=== PATIENT | male | born 1960 | race Caucasian/White ===

== ENCOUNTER 2016-07-16 16:32 | Emergency (ER) | payer MEDICARE, MEDICAID ==
[2016-07-16] MEDS ORDERED: DUONEB INH ONE ×2 (17:07→19:41)
[2016-07-16] MEDS ORDERED: KETOROLAC 60 MG/2 ML VIAL IM ONE (17:32)
[2016-07-16] MEDS ORDERED: ORPHENADRINE 60 MG/2 ML AMP ONE (18:57)
== END 2016-07-16 21:07 | disposition home or self-care (01) ==
LOC: ER 16:32
CPT/HCPCS: 36415; 36600; 71010; 80051; 80053; 82330; 82553; 82803; 83880; 84484; 85025; 87804; 93005; 94640

== ENCOUNTER 2016-07-18 22:37 | Inpatient (IN) | payer OTHER, MEDICAID ==
[~2016-07-18] VITALS: Ht 167.6 cm; Wt 65.4 kg
[2016-07-18] MEDS ORDERED: METHYLPRED SOD SUCC 125 MG/2 ML VIAL ONE (22:40)
[2016-07-18] MEDS ORDERED: LORAZEPAM 2 MG/ML VIAL ONE (22:40)
[2016-07-18 22:49] VITALS: RESP 26
[2016-07-19] VITALS (8 sets, daily range): BP systolic 120–144; RESP 18–28; TEMP 97.5–98.1; BMI 22.1
[2016-07-19] MEDS ORDERED: SALINE FLUSH 10 ML FLUSH PRN (01:35)
[2016-07-19] MEDS ORDERED: ONDANSETRON 4 MG VIAL IV PRN (01:35)
[2016-07-19] MEDS ORDERED: SODIUM CHLORIDE 0.9% 1,000 ML IV SCH ×2 (01:35→03:05)
[2016-07-19] MEDS: NEB-XOPENEX 1.25 MG/3 ML INH SCH ×6 (03:32→23:00)
[2016-07-19] MEDS: NEB-ATROVENT INH SCH ×6 (03:32→23:00)
[2016-07-19] MEDS ORDERED: KETAMINE HCL 500 MG/10 ML VIAL ONE (04:38)
[2016-07-19] MEDS ORDERED: ROCURONIUM 50 MG VIAL IV ONE (04:38)
[2016-07-19] MEDS: SODIUM CHLORIDE 0.9% FLUSH BAG 500 ML IV SCH (06:00)
[2016-07-19] MEDS: SALINE FLUSH 10 ML FLUSH SCH ×2 (07:44→20:47)
[2016-07-19] MEDS: METHYLPRED SOD SUCC 40 MG VIAL IV SCH ×3 (07:44→23:29)
[2016-07-19] MEDS: ENOXAPARIN 40 MG/0.4 ML SYR SUBQ SCH ×2 (07:45→07:49)
[2016-07-19] MEDS: amLODIPine 5 MG TAB PO SCH ×2 (14:40→20:48)
[2016-07-19] MEDS: METOPROLOL TART 25 MG TAB PO SCH ×2 (14:40→20:48)
[2016-07-19] MEDS: NEB-ALBUTEROL 2.5 MG/3 ML INH SCH ×3 (15:00→23:00)
[2016-07-19] MEDS: DILTIAZEM CD 120 MG CAP PO SCH (15:34)
[2016-07-19] MEDS: ESCITALOPRAM 10 MG TAB PO SCH (15:34)
[2016-07-19] MEDS: ASPIRIN 81 MG CHEW TAB PO SCH (15:34)
[2016-07-19] MEDS: LISINOPRIL 10 MG TAB PO SCH (15:34)
[2016-07-19] MEDS: Hydrocodone/APAP 10/325 MG TAB PO PRN ×3 (15:36→23:35)
[2016-07-19] MEDS: NICOTINE 14 MG/24 HR TDSY TRANSDERM SCH (16:55)
[2016-07-19] MEDS: KCL CR 20 MEQ TAB PO SCH (20:48)
[2016-07-19] MEDS: TRAZODONE 50 MG TAB PO SCH (23:28)
[2016-07-20] VITALS (8 sets, daily range): BP systolic 98–146; RESP 16–24; TEMP 95.7–97.1
[2016-07-20] MEDS: NEB-XOPENEX 1.25 MG/3 ML INH SCH ×6 (02:51→22:39)
[2016-07-20] MEDS: NEB-ATROVENT INH SCH ×6 (02:52→22:40)
[2016-07-20] MEDS: Hydrocodone/APAP 10/325 MG TAB PO PRN ×5 (03:35→21:09)
[2016-07-20] MEDS: PANTOPRAZOLE 40 MG TAB PO SCH (06:18)
[2016-07-20] MEDS: SODIUM CHLORIDE 0.9% FLUSH BAG 500 ML IV SCH (06:22)
[2016-07-20] MEDS: NEB-ALBUTEROL 2.5 MG/3 ML INH SCH ×4 (07:00→22:40)
[2016-07-20] MEDS: NICOTINE 14 MG/24 HR TDSY TRANSDERM SCH (08:13)
[2016-07-20] MEDS: METHYLPRED SOD SUCC 40 MG VIAL IV SCH ×2 (08:14→16:44)
[2016-07-20] MEDS: ESCITALOPRAM 10 MG TAB PO SCH (08:15)
[2016-07-20] MEDS: LISINOPRIL 10 MG TAB PO SCH (08:15)
[2016-07-20] MEDS: KCL CR 20 MEQ TAB PO SCH ×2 (08:15→21:53)
[2016-07-20] MEDS: DILTIAZEM CD 120 MG CAP PO SCH (08:17)
[2016-07-20] MEDS: ASPIRIN 81 MG CHEW TAB PO SCH (08:17)
[2016-07-20] MEDS: METOPROLOL TART 25 MG TAB PO SCH ×2 (08:19→21:53)
[2016-07-20] MEDS: amLODIPine 5 MG TAB PO SCH ×2 (08:20→21:57)
[2016-07-20] MEDS: ENOXAPARIN 40 MG/0.4 ML SYR SUBQ SCH ×2 (08:21→08:28)
[2016-07-20] MEDS: SALINE FLUSH 10 ML FLUSH SCH ×2 (08:22→21:52)
[2016-07-20] MEDS ORDERED: MISSING DOSE XX ONE (08:30)
[2016-07-20] MEDS: THEOPHYLLINE SR 300 MG CAP PO SCH (09:48)
[2016-07-20] MEDS ORDERED: LORAZEPAM 0.5 MG TAB ONE (14:00)
[2016-07-20] MEDS: TRAZODONE 50 MG TAB PO SCH (21:53)
[2016-07-21] VITALS (19 sets, daily range): BP systolic 88–169; RESP 13–24; TEMP 95.5–97
[2016-07-21] MEDS: METHYLPRED SOD SUCC 40 MG VIAL IV SCH ×4 (00:28→23:33)
[2016-07-21] MEDS: LORAZEPAM 0.5 MG TAB PO PRN ×3 (01:07→22:07)
[2016-07-21] MEDS: Hydrocodone/APAP 10/325 MG TAB PO PRN ×5 (01:09→20:16)
[2016-07-21] MEDS: NEB-ATROVENT INH SCH ×4 (02:47→11:33)
[2016-07-21] MEDS: NEB-XOPENEX 1.25 MG/3 ML INH SCH ×3 (02:48→11:33)
[2016-07-21] MEDS: SODIUM CHLORIDE 0.9% FLUSH BAG 500 ML IV SCH ×2 (05:14→16:33)
[2016-07-21] MEDS: PANTOPRAZOLE 40 MG TAB PO SCH (06:29)
[2016-07-21] MEDS: NEB-ALBUTEROL 2.5 MG/3 ML INH SCH ×2 (07:00→13:47)
[2016-07-21] MEDS: ENOXAPARIN 40 MG/0.4 ML SYR SUBQ SCH ×2 (09:00→09:31)
[2016-07-21] MEDS: KCL CR 20 MEQ TAB PO SCH ×2 (09:00→20:16)
[2016-07-21] MEDS: LISINOPRIL 10 MG TAB PO SCH (09:28)
[2016-07-21] MEDS: DILTIAZEM CD 120 MG CAP PO SCH (09:28)
[2016-07-21] MEDS: METOPROLOL TART 25 MG TAB PO SCH ×2 (09:28→20:16)
[2016-07-21] MEDS: ESCITALOPRAM 10 MG TAB PO SCH (09:28)
[2016-07-21] MEDS: SALINE FLUSH 10 ML FLUSH SCH ×2 (09:28→20:16)
[2016-07-21] MEDS: ASPIRIN 81 MG CHEW TAB PO SCH (09:28)
[2016-07-21] MEDS: NICOTINE 14 MG/24 HR TDSY TRANSDERM SCH (09:29)
[2016-07-21] MEDS ORDERED: MISSING DOSE XX ONE (09:45)
[2016-07-21] MEDS: THEOPHYLLINE SR 300 MG CAP PO SCH (11:05)
[2016-07-21] MEDS: amLODIPine 5 MG TAB PO SCH ×2 (11:05→20:16)
[2016-07-21] MEDS: NEB-BUDESONIDE 0.5 MG INH SCH ×2 (12:20→20:18)
[2016-07-21] MEDS: NEB-BROVANA 15 MCG/2 ML INH SCH ×2 (12:20→20:18)
[2016-07-21] MEDS ORDERED: DUONEB INH PRN (12:25)
[2016-07-21] MEDS ORDERED: NEB-ALBUTEROL 2.5 MG/3 ML INH PRN (13:45)
[2016-07-21] MEDS: AZITHROMYCIN 500 MG in SODIUM CHLORIDE 0.9% 250 ML IV SCH (16:35)
[2016-07-21] MEDS: CEFTRIAXONE 1 GM in SODIUM CHLORIDE 0.9% 50 ML IV SCH (20:06)
[2016-07-21] MEDS: TRAZODONE 50 MG TAB PO SCH (20:15)
[2016-07-21] MEDS: DUONEB INH SCH ×3 (20:18→23:25)
[2016-07-22] VITALS (92 sets, daily range): BP systolic 85–170; RESP 15–24; TEMP 96.4–97.8; Ht 167.6 cm; Wt 65.4 kg
[2016-07-22] MEDS: Hydrocodone/APAP 10/325 MG TAB PO PRN (02:15)
[2016-07-22] MEDS: DUONEB INH SCH ×6 (02:48→23:10)
[2016-07-22] MEDS: LORAZEPAM 0.5 MG TAB PO PRN (04:13)
[2016-07-22] MEDS: SODIUM CHLORIDE 0.9% FLUSH BAG 500 ML IV SCH ×2 (05:53→06:05)
[2016-07-22] MEDS: NEB-BROVANA 15 MCG/2 ML INH SCH ×2 (07:25→18:44)
[2016-07-22] MEDS: NEB-BUDESONIDE 0.5 MG INH SCH ×2 (07:25→18:44)
[2016-07-22] MEDS: PANTOPRAZOLE 40 MG TAB PO SCH (08:05)
[2016-07-22] MEDS: CEFTRIAXONE 1 GM in SODIUM CHLORIDE 0.9% 50 ML IV SCH ×2 (08:05→19:55)
[2016-07-22] MEDS: amLODIPine 5 MG TAB PO SCH (08:05)
[2016-07-22] MEDS: MAGNESIUM SULF 1 GM/100 ML 100 ML IV SCH ×4 (08:05→11:59)
[2016-07-22] MEDS: SALINE FLUSH 10 ML FLUSH SCH ×2 (08:05→19:55)
[2016-07-22] MEDS: METHYLPRED SOD SUCC 40 MG VIAL IV SCH ×2 (08:05→16:29)
[2016-07-22] MEDS ORDERED: ROCURONIUM 50 MG VIAL IV ONE (08:43)
[2016-07-22] MEDS ORDERED: ETOMIDATE 2 MG/ML VIAL IV ONE (08:43)
[2016-07-22] MEDS: AZITHROMYCIN 500 MG in SODIUM CHLORIDE 0.9% 250 ML IV SCH (09:50)
[2016-07-22] MEDS: ASPIRIN 81 MG CHEW TAB PO SCH (09:53)
[2016-07-22] MEDS: NICOTINE 14 MG/24 HR TDSY TRANSDERM SCH (09:53)
[2016-07-22] MEDS: KCL CR 20 MEQ TAB PO SCH (09:53)
[2016-07-22] MEDS: ESCITALOPRAM 10 MG TAB PO SCH (09:53)
[2016-07-22] MEDS: LISINOPRIL 10 MG TAB PO SCH (09:53)
[2016-07-22] MEDS: ENOXAPARIN 40 MG/0.4 ML SYR SUBQ SCH (09:53)
[2016-07-22] MEDS: METOPROLOL TART 25 MG TAB PO SCH (09:53)
[2016-07-22] MEDS: DILTIAZEM CD 120 MG CAP PO SCH (09:53)
[2016-07-22] MEDS ORDERED: Hydrocodone/APAP 10/325 MG TAB NG PRN (10:05)
[2016-07-22] MEDS ORDERED: LORAZEPAM 0.5 MG TAB NG PRN (10:05)
[2016-07-22] MEDS: FENTANYL DRIP 50 ML IV PRN ×2 (14:21→19:56)
[2016-07-22] MEDS: PROPOFOL 100 ML 100 ML IV PRN ×2 (16:28→22:05)
[2016-07-22] MEDS: TRAZODONE 50 MG TAB NG SCH (20:54)
[2016-07-22] MEDS: KCL 20 MEQ/15 ML UDC NG SCH (20:54)
[2016-07-22] MEDS: amLODIPine 5 MG TAB NG SCH (21:00)
[2016-07-22] MEDS: METOPROLOL TART 25 MG TAB NG SCH (21:00)
[2016-07-23] VITALS (64 sets, daily range): BP systolic 81–155; RESP 12–24; TEMP 96.1–98.8
[2016-07-23] MEDS: FENTANYL DRIP 50 ML IV PRN ×3 (00:03→15:27)
[2016-07-23] MEDS: METHYLPRED SOD SUCC 40 MG VIAL IV SCH ×2 (01:13→08:50)
[2016-07-23] MEDS: PROPOFOL 100 ML 100 ML IV PRN ×3 (01:21→18:35)
[2016-07-23] MEDS: DUONEB INH SCH ×6 (03:01→23:30)
[2016-07-23] MEDS: SODIUM CHLORIDE 0.9% FLUSH BAG 500 ML IV SCH ×2 (04:30→04:42)
[2016-07-23] MEDS: LANSOPRAZOLE 30 MG SOLUTAB NG SCH (06:16)
[2016-07-23] MEDS: NEB-BUDESONIDE 0.5 MG INH SCH ×2 (06:53→18:45)
[2016-07-23] MEDS: NEB-BROVANA 15 MCG/2 ML INH SCH ×2 (06:53→18:45)
[2016-07-23] MEDS: CEFTRIAXONE 1 GM in SODIUM CHLORIDE 0.9% 50 ML IV SCH ×2 (08:37→20:12)
[2016-07-23] MEDS: SALINE FLUSH 10 ML FLUSH SCH ×2 (08:37→20:14)
[2016-07-23] MEDS: ENOXAPARIN 40 MG/0.4 ML SYR SUBQ SCH (08:38)
[2016-07-23] MEDS: KCL 20 MEQ/15 ML UDC NG SCH ×2 (08:51→20:13)
[2016-07-23] MEDS: ESCITALOPRAM 10 MG TAB NG SCH (08:53)
[2016-07-23] MEDS: METOPROLOL TART 25 MG TAB NG SCH ×2 (08:53→20:13)
[2016-07-23] MEDS: amLODIPine 5 MG TAB NG SCH ×2 (08:53→20:13)
[2016-07-23] MEDS: NICOTINE 14 MG/24 HR TDSY TRANSDERM SCH (08:53)
[2016-07-23] MEDS: LISINOPRIL 10 MG TAB NG SCH (08:53)
[2016-07-23] MEDS: ASPIRIN 81 MG CHEW TAB NG SCH (08:53)
[2016-07-23] MEDS ORDERED: DILTIAZEM CD 120 MG CAP NG SCH (09:00)
[2016-07-23] MEDS: AZITHROMYCIN 500 MG in SODIUM CHLORIDE 0.9% 250 ML IV SCH (09:29)
[2016-07-23] MEDS: OXYCODONE 5 MG TAB PO SCH ×3 (09:29→20:13)
[2016-07-23] MEDS: METHYLPRED SOD SUCC 125 MG/2 ML VIAL IV SCH (20:13)
[2016-07-23] MEDS: TRAZODONE 50 MG TAB NG SCH (20:14)
[2016-07-24] VITALS (48 sets, daily range): BP systolic 99–192; RESP 13–24; TEMP 97.6–99.3
[2016-07-24] MEDS: PROPOFOL 100 ML 100 ML IV PRN ×2 (01:41→08:38)
[2016-07-24] MEDS: FENTANYL DRIP 50 ML IV PRN ×2 (01:42→08:35)
[2016-07-24] MEDS: DUONEB INH SCH ×6 (02:31→23:27)
[2016-07-24] MEDS ORDERED: *PINK BRACELET XX ONE (02:40)
[2016-07-24] MEDS: OXYCODONE 5 MG TAB PO SCH ×4 (03:44→20:35)
[2016-07-24] MEDS: SODIUM CHLORIDE 0.9% FLUSH BAG 500 ML IV SCH (03:44)
[2016-07-24] MEDS: NEB-BROVANA 15 MCG/2 ML INH SCH ×2 (06:25→20:26)
[2016-07-24] MEDS: NEB-BUDESONIDE 0.5 MG INH SCH ×2 (06:25→20:26)
[2016-07-24] MEDS: *HOME MEDS KEPT IN PHARMACY XX SCH ×2 (08:00→19:39)
[2016-07-24] MEDS: CEFTRIAXONE 1 GM in SODIUM CHLORIDE 0.9% 50 ML IV SCH ×2 (08:38→19:38)
[2016-07-24] MEDS: AZITHROMYCIN 500 MG in SODIUM CHLORIDE 0.9% 250 ML IV SCH (08:39)
[2016-07-24] MEDS: NICOTINE 14 MG/24 HR TDSY TRANSDERM SCH (08:40)
[2016-07-24] MEDS: ASPIRIN 81 MG CHEW TAB NG SCH (08:42)
[2016-07-24] MEDS: METOPROLOL TART 25 MG TAB NG SCH ×2 (08:42→20:35)
[2016-07-24] MEDS: ESCITALOPRAM 10 MG TAB NG SCH (08:42)
[2016-07-24] MEDS: ENOXAPARIN 40 MG/0.4 ML SYR SUBQ SCH (08:42)
[2016-07-24] MEDS: METHYLPRED SOD SUCC 125 MG/2 ML VIAL IV SCH ×2 (08:42→19:38)
[2016-07-24] MEDS: LANSOPRAZOLE 30 MG SOLUTAB NG SCH (08:43)
[2016-07-24] MEDS: KCL 20 MEQ/15 ML UDC NG SCH (08:44)
[2016-07-24] MEDS: amLODIPine 5 MG TAB NG SCH ×2 (08:44→20:35)
[2016-07-24] MEDS: LISINOPRIL 10 MG TAB NG SCH (08:44)
[2016-07-24] MEDS ORDERED: MORPHINE 2 MG/ML SYR ONE (11:15)
[2016-07-24] MEDS: MORPHINE 4 MG/ML SYR IV PRN ×5 (13:08→23:44)
[2016-07-24] MEDS: TRAZODONE 50 MG TAB NG SCH (20:35)
[2016-07-25] VITALS (25 sets, daily range): BP systolic 112–192; RESP 17–26; TEMP 97.9–98.9
[2016-07-25] MEDS: DUONEB INH SCH ×6 (02:52→23:07)
[2016-07-25] MEDS: OXYCODONE 5 MG TAB PO SCH ×4 (03:05→20:15)
[2016-07-25] MEDS: SODIUM CHLORIDE 0.9% FLUSH BAG 500 ML IV SCH ×2 (04:21→06:27)
[2016-07-25] MEDS: LANSOPRAZOLE 30 MG SOLUTAB NG SCH (06:27)
[2016-07-25] MEDS: NEB-BROVANA 15 MCG/2 ML INH SCH ×2 (06:54→18:15)
[2016-07-25] MEDS: NEB-BUDESONIDE 0.5 MG INH SCH ×2 (06:54→18:15)
[2016-07-25] MEDS: *HOME MEDS KEPT IN PHARMACY XX SCH ×2 (07:34→19:40)
[2016-07-25] MEDS ORDERED: *TUBE FEEDS DISCONTINUED, ASSESS/ADJUST MEDICATIONS PO ONE (07:40)
[2016-07-25] MEDS ORDERED: LORAZEPAM 0.5 MG TAB ONE (07:46)
[2016-07-25] MEDS: CEFTRIAXONE 1 GM in SODIUM CHLORIDE 0.9% 50 ML IV SCH ×2 (07:56→20:02)
[2016-07-25] MEDS: ASPIRIN 81 MG CHEW TAB NG SCH (07:59)
[2016-07-25] MEDS: ESCITALOPRAM 10 MG TAB NG SCH (07:59)
[2016-07-25] MEDS: PREDNISONE 20 MG TAB PO SCH (08:00)
[2016-07-25] MEDS: amLODIPine 5 MG TAB NG SCH (08:00)
[2016-07-25] MEDS: LISINOPRIL 10 MG TAB NG SCH (08:00)
[2016-07-25] MEDS: METOPROLOL TART 25 MG TAB NG SCH (08:00)
[2016-07-25] MEDS: ENOXAPARIN 40 MG/0.4 ML SYR SUBQ SCH (08:13)
[2016-07-25] MEDS: NICOTINE 14 MG/24 HR TDSY TRANSDERM SCH (08:14)
[2016-07-25] MEDS: MORPHINE 4 MG/ML SYR IV PRN ×4 (08:15→20:03)
[2016-07-25] MEDS: MORPHINE 2 MG/ML SYR IV PRN ×4 (08:16→20:04)
[2016-07-25] MEDS ORDERED: Hydrocodone/APAP 10/325 MG TAB PO PRN (09:05)
[2016-07-25] MEDS ORDERED: LORAZEPAM 0.5 MG TAB NG PRN (10:05)
[2016-07-25] MEDS: LORAZEPAM 0.5 MG TAB PO PRN ×2 (14:28→20:41)
[2016-07-25] MEDS: METOPROLOL TART 25 MG TAB PO SCH (20:03)
[2016-07-25] MEDS: amLODIPine 5 MG TAB PO SCH (20:03)
[2016-07-25] MEDS: TRAZODONE 50 MG TAB PO SCH (20:03)
[2016-07-26] VITALS (16 sets, daily range): BP systolic 94–160; RESP 16–27; TEMP 97.3–98
[2016-07-26] MEDS: MORPHINE 2 MG/ML SYR IV PRN ×5 (02:15→18:38)
[2016-07-26] MEDS: MORPHINE 4 MG/ML SYR IV PRN ×3 (02:15→11:45)
[2016-07-26] MEDS: OXYCODONE 5 MG TAB PO SCH ×4 (02:18→21:01)
[2016-07-26] MEDS: DUONEB INH SCH ×6 (02:45→22:41)
[2016-07-26] MEDS: LORAZEPAM 0.5 MG TAB PO PRN ×3 (02:47→17:35)
[2016-07-26] MEDS: SODIUM CHLORIDE 0.9% FLUSH BAG 500 ML IV SCH ×2 (05:04→05:11)
[2016-07-26] MEDS: NEB-BUDESONIDE 0.5 MG INH SCH ×2 (05:54→20:07)
[2016-07-26] MEDS: NEB-BROVANA 15 MCG/2 ML INH SCH ×2 (05:54→20:07)
[2016-07-26] MEDS: PANTOPRAZOLE 40 MG TAB PO SCH (06:01)
[2016-07-26] MEDS: ASPIRIN 81 MG CHEW TAB PO SCH (08:28)
[2016-07-26] MEDS: *HOME MEDS KEPT IN PHARMACY XX SCH ×2 (08:28→20:00)
[2016-07-26] MEDS: CEFTRIAXONE 1 GM in SODIUM CHLORIDE 0.9% 50 ML IV SCH ×2 (08:28→22:15)
[2016-07-26] MEDS: LISINOPRIL 10 MG TAB PO SCH (08:29)
[2016-07-26] MEDS: amLODIPine 5 MG TAB PO SCH ×2 (08:29→21:00)
[2016-07-26] MEDS: METOPROLOL TART 25 MG TAB PO SCH ×2 (08:29→21:00)
[2016-07-26] MEDS: ESCITALOPRAM 10 MG TAB PO SCH (08:29)
[2016-07-26] MEDS: PREDNISONE 20 MG TAB PO SCH (08:29)
[2016-07-26] MEDS: ENOXAPARIN 40 MG/0.4 ML SYR SUBQ SCH (08:30)
[2016-07-26] MEDS: NICOTINE 14 MG/24 HR TDSY TRANSDERM SCH (08:30)
[2016-07-26] MEDS: TRAZODONE 50 MG TAB PO SCH (21:00)
[2016-07-26] MEDS ORDERED: MISSING DOSE XX ONE (21:10)
[2016-07-27] VITALS (7 sets, daily range): BP systolic 112–136; RESP 20–21; TEMP 97.4–98.1
[2016-07-27] MEDS: MORPHINE 2 MG/ML SYR IV PRN ×7 (00:51→22:03)
[2016-07-27] MEDS: DUONEB INH SCH ×3 (02:31→11:00)
[2016-07-27] MEDS: OXYCODONE 5 MG TAB PO SCH ×4 (03:14→21:06)
[2016-07-27] MEDS: SODIUM CHLORIDE 0.9% FLUSH BAG 500 ML IV SCH ×2 (06:00→06:26)
[2016-07-27] MEDS: PANTOPRAZOLE 40 MG TAB PO SCH (06:27)
[2016-07-27] MEDS: NEB-BUDESONIDE 0.5 MG INH SCH ×2 (07:30→18:57)
[2016-07-27] MEDS: NEB-BROVANA 15 MCG/2 ML INH SCH ×2 (07:30→18:57)
[2016-07-27] MEDS: *HOME MEDS KEPT IN PHARMACY XX SCH ×2 (08:00→19:03)
[2016-07-27] MEDS: LORAZEPAM 0.5 MG TAB PO PRN ×2 (08:53→18:40)
[2016-07-27] MEDS: ASPIRIN 81 MG CHEW TAB PO SCH (08:53)
[2016-07-27] MEDS: METOPROLOL TART 25 MG TAB PO SCH ×2 (08:53→21:05)
[2016-07-27] MEDS: amLODIPine 5 MG TAB PO SCH ×2 (08:53→21:05)
[2016-07-27] MEDS: LISINOPRIL 10 MG TAB PO SCH (08:53)
[2016-07-27] MEDS: PREDNISONE 20 MG TAB PO SCH (08:53)
[2016-07-27] MEDS: NICOTINE 14 MG/24 HR TDSY TRANSDERM SCH (08:54)
[2016-07-27] MEDS: ESCITALOPRAM 10 MG TAB PO SCH (08:54)
[2016-07-27] MEDS: ENOXAPARIN 40 MG/0.4 ML SYR SUBQ SCH (08:56)
[2016-07-27] MEDS: CEFTRIAXONE 1 GM in SODIUM CHLORIDE 0.9% 50 ML IV SCH ×2 (09:11→21:05)
[2016-07-27] MEDS ORDERED: NEB-XOPENEX 1.25 MG/3 ML INH PRN (13:00)
[2016-07-27] MEDS: NEB-ATROVENT INH SCH ×3 (15:33→22:43)
[2016-07-27] MEDS: NEB-XOPENEX 1.25 MG/3 ML INH SCH ×3 (15:33→22:44)
[2016-07-27] MEDS: TRAZODONE 50 MG TAB PO SCH (21:05)
[2016-07-28] VITALS (9 sets, daily range): BP systolic 110–126; RESP 18–22; TEMP 97.1–98.1
[2016-07-28] MEDS: MORPHINE 2 MG/ML SYR IV PRN ×7 (00:58→22:46)
[2016-07-28] MEDS: LORAZEPAM 0.5 MG TAB PO PRN ×3 (02:40→22:46)
[2016-07-28] MEDS: OXYCODONE 5 MG TAB PO SCH ×4 (03:05→21:21)
[2016-07-28] MEDS: SODIUM CHLORIDE 0.9% FLUSH BAG 500 ML IV SCH ×2 (05:48→06:33)
[2016-07-28] MEDS: PANTOPRAZOLE 40 MG TAB PO SCH (06:32)
[2016-07-28] MEDS: NEB-BROVANA 15 MCG/2 ML INH SCH ×2 (06:34→20:10)
[2016-07-28] MEDS: NEB-ATROVENT INH SCH ×5 (06:34→23:54)
[2016-07-28] MEDS: NEB-XOPENEX 1.25 MG/3 ML INH SCH ×5 (06:34→23:54)
[2016-07-28] MEDS: NEB-BUDESONIDE 0.5 MG INH SCH ×2 (06:34→19:00)
[2016-07-28] MEDS: CEFTRIAXONE 1 GM in SODIUM CHLORIDE 0.9% 50 ML IV SCH (07:48)
[2016-07-28] MEDS: *HOME MEDS KEPT IN PHARMACY XX SCH ×2 (08:00→20:00)
[2016-07-28] MEDS: NICOTINE 14 MG/24 HR TDSY TRANSDERM SCH (09:34)
[2016-07-28] MEDS: ESCITALOPRAM 10 MG TAB PO SCH (09:35)
[2016-07-28] MEDS: ENOXAPARIN 40 MG/0.4 ML SYR SUBQ SCH (09:35)
[2016-07-28] MEDS: ASPIRIN 81 MG CHEW TAB PO SCH (09:36)
[2016-07-28] MEDS: amLODIPine 5 MG TAB PO SCH ×2 (09:36→21:22)
[2016-07-28] MEDS: LISINOPRIL 10 MG TAB PO SCH (09:36)
[2016-07-28] MEDS: PREDNISONE 20 MG TAB PO SCH (09:36)
[2016-07-28] MEDS: METOPROLOL TART 25 MG TAB PO SCH ×2 (09:36→21:21)
[2016-07-28] MEDS ORDERED: ACETAMINOPHEN 325 MG TAB PO PRN (10:50)
[2016-07-28] MEDS ORDERED: Ibuprofen 600 MG TAB PO PRN (10:50)
[2016-07-28] MEDS: KETOROLAC 15 MG/ML VIAL IV PRN ×2 (15:14→21:23)
[2016-07-28] MEDS: SALINE FLUSH 10 ML FLUSH PRN ×2 (15:15→18:55)
[2016-07-28] MEDS: TRAZODONE 50 MG TAB PO SCH (21:22)
[2016-07-28] MEDS: SALINE FLUSH 10 ML FLUSH SCH (21:22)
[2016-07-29] VITALS (7 sets, daily range): BP systolic 104–118; RESP 18–20; TEMP 97–98.3
[2016-07-29] MEDS: MORPHINE 2 MG/ML SYR IV PRN ×3 (03:14→10:51)
[2016-07-29] MEDS: OXYCODONE 5 MG TAB PO SCH ×2 (03:45→09:37)
[2016-07-29] MEDS: SODIUM CHLORIDE 0.9% FLUSH BAG 500 ML IV SCH ×2 (05:51)
[2016-07-29] MEDS: NEB-BROVANA 15 MCG/2 ML INH SCH ×2 (06:33→19:08)
[2016-07-29] MEDS: NEB-ATROVENT INH SCH ×5 (06:33→22:34)
[2016-07-29] MEDS: NEB-BUDESONIDE 0.5 MG INH SCH ×2 (06:33→19:08)
[2016-07-29] MEDS: NEB-XOPENEX 1.25 MG/3 ML INH SCH ×5 (06:34→22:34)
[2016-07-29] MEDS: PANTOPRAZOLE 40 MG TAB PO SCH (06:54)
[2016-07-29] MEDS: LORAZEPAM 0.5 MG TAB PO PRN (07:51)
[2016-07-29] MEDS: KETOROLAC 15 MG/ML VIAL IV PRN ×2 (07:52→15:17)
[2016-07-29] MEDS: SALINE FLUSH 10 ML FLUSH SCH ×2 (07:52→22:18)
[2016-07-29] MEDS: *HOME MEDS KEPT IN PHARMACY XX SCH ×2 (08:00→19:05)
[2016-07-29] MEDS: NICOTINE 14 MG/24 HR TDSY TRANSDERM SCH (09:36)
[2016-07-29] MEDS: ASPIRIN 81 MG CHEW TAB PO SCH (09:36)
[2016-07-29] MEDS: ESCITALOPRAM 10 MG TAB PO SCH (09:36)
[2016-07-29] MEDS: PREDNISONE 20 MG TAB PO SCH (09:37)
[2016-07-29] MEDS: amLODIPine 5 MG TAB PO SCH ×2 (09:37→22:17)
[2016-07-29] MEDS: METOPROLOL TART 25 MG TAB PO SCH ×2 (09:37→22:17)
[2016-07-29] MEDS: LISINOPRIL 10 MG TAB PO SCH (09:37)
[2016-07-29] MEDS: ENOXAPARIN 40 MG/0.4 ML SYR SUBQ SCH (09:38)
[2016-07-29] MEDS: SALINE FLUSH 10 ML FLUSH PRN ×2 (10:51→15:16)
[2016-07-29] MEDS ORDERED: Hydrocodone/APAP 10/325 MG TAB PO PRN (11:05)
[2016-07-29] MEDS ORDERED: MISSING DOSE XX ONE ×2 (14:45→15:35)
[2016-07-29] MEDS ORDERED: Ibuprofen 600 MG TAB PO PRN (15:50)
[2016-07-29] MEDS ORDERED: LORAZEPAM 0.5 MG TAB PO PRN (16:50)
[2016-07-29] MEDS: Hydrocodone/APAP 10/325 MG TAB PO PRN ×2 (18:05→22:17)
[2016-07-29] MEDS: TRAZODONE 50 MG TAB PO SCH (22:16)
[2016-07-30] MEDS: Hydrocodone/APAP 10/325 MG TAB PO PRN ×3 (03:12→12:15)
[2016-07-30] MEDS: SODIUM CHLORIDE 0.9% FLUSH BAG 500 ML IV SCH ×2 (06:00)
[2016-07-30] MEDS: PANTOPRAZOLE 40 MG TAB PO SCH (06:29)
[2016-07-30] MEDS: NEB-BUDESONIDE 0.5 MG INH SCH (07:17)
[2016-07-30] MEDS: NEB-BROVANA 15 MCG/2 ML INH SCH (07:17)
[2016-07-30] MEDS: NEB-ATROVENT INH SCH ×3 (07:17→14:56)
[2016-07-30] MEDS: NEB-XOPENEX 1.25 MG/3 ML INH SCH ×3 (07:17→14:56)
[2016-07-30 07:52] VITALS: BP_SYST 104; RESP 18; TEMP 97.9
[2016-07-30] MEDS: ENOXAPARIN 40 MG/0.4 ML SYR SUBQ SCH (07:55)
[2016-07-30] MEDS: amLODIPine 5 MG TAB PO SCH (07:56)
[2016-07-30] MEDS: ESCITALOPRAM 10 MG TAB PO SCH (07:57)
[2016-07-30] MEDS: ASPIRIN 81 MG CHEW TAB PO SCH (07:57)
[2016-07-30] MEDS: LISINOPRIL 10 MG TAB PO SCH (07:57)
[2016-07-30] MEDS: PREDNISONE 20 MG TAB PO SCH (07:58)
[2016-07-30] MEDS: NICOTINE 14 MG/24 HR TDSY TRANSDERM SCH (07:59)
[2016-07-30] MEDS: METOPROLOL TART 25 MG TAB PO SCH (07:59)
[2016-07-30] MEDS: SALINE FLUSH 10 ML FLUSH SCH (08:00)
[2016-07-30] MEDS: *HOME MEDS KEPT IN PHARMACY XX SCH (08:00)
[2016-07-30 11:13] VITALS: BP_SYST 108; RESP 18; TEMP 98.7
[2016-07-30 13:57] VITALS: BP_SYST 108; RESP 18; TEMP 98.7
[2016-07-30 14:01] VITALS: BP_SYST 108; RESP 18; TEMP 98.7
[2016-07-30 14:58] VITALS: BP_SYST 102; RESP 16; TEMP 97.8
== END 2016-07-30 16:36 | disposition home or self-care (01) | DRG 208 ==
LOC: ENRESERVTM → ENRESERVDT → ER 22:37 → EMR 07-19 01:32 → 4THE 07-19 02:51 → CCU 07-21 14:07 → 4NT 07-26 13:49
PROVIDERS: ADMIT Family Medicine; ATTEND Family Medicine
PROC: 05H633Z Insertion of Infusion Device into Left Subclavian Vein, Percutaneous Approach (ICD-10-PCS; principal; 2016-07-21)
PROC: 5A1945Z Respiratory Ventilation, 24-96 Consecutive Hours (ICD-10-PCS; 2016-07-22)
PROC: 0BH17EZ Insertion of Endotracheal Airway into Trachea, Via Natural or Artificial Opening (ICD-10-PCS; 2016-07-22)
DX: J96.22 Acute and chronic respiratory failure with hypercapnia (principal); Z99.81 Dependence on supplemental oxygen; J44.1 Chronic obstructive pulmonary disease with (acute) exacerbation; I11.0 Hypertensive heart disease with heart failure; I50.32 Chronic diastolic (congestive) heart failure; J96.21 Acute and chronic respiratory failure with hypoxia; F17.210 Nicotine dependence, cigarettes, uncomplicated; I25.10 Atherosclerotic heart disease of native coronary artery without angina pectoris; Z95.1 Presence of aortocoronary bypass graft; G89.29 Other chronic pain; D64.9 Anemia, unspecified; Z91.19 Patient's noncompliance with other medical treatment and regimen; E83.42 Hypomagnesemia; Z66 Do not resuscitate; F41.9 Anxiety disorder, unspecified; Z79.82 Long term (current) use of aspirin
CPT/HCPCS: 36415; 36558; 36600; 70450; 71010; 71020; 80048; 80051; 80053; 81001; 82330; 82553; 82803; 82947; 83605; 83735; 83880; 84100; 84484; 85025; 85610; 85730; 87804; 93005; 94002; 94003; 94640; 94660; 94799; 96372; 96374; 96375; 99223; 99232; 99233; 99291